=== PATIENT | female | born 2005 | race Caucasian/White ===

== ENCOUNTER 2025-01-20 20:29 | Observation (INO) ==
--- NOTE | 2025-01-20 20:59 | Emergency Department Note ---
Impression & Plan Leukocytosis, Acute neck pain, Headache, Upper respiratory symptom ED Provider Note NAME: JACK GUEVARA AGE: 19 SEX: F : 2005 ARRIVES VIA: Walk-In INFORMANT: Patient ED PROVIDER(S): Alonzo Davis DO CHIEF COMPLAINT: Not feeling well HPI: Patient is a 19-year-old female who presents ER for multiple complaints. She notes her symptoms started yesterday and have worsened throughout today. She admits to a cough, congestion and a sore throat. She notes that her ears both hurt. She also admits to a mild headache and neck pain and that is the main reason why she came in. She spoke to a family member who is a doctor and there were concern for possible meningitis. She does have some nausea and muscle aches throughout her whole body. She denies any dysuria, urgency or frequency. Fever of 103 today. Shots are up-to-date. No other medical problems. ADDITIONAL HISTORY OBTAINED: Per HPI Chronic Medical/Social Conditions Affecting Care: Per HPI PAST MEDICAL HISTORY:See Below PAST SURGICAL HISTORY:See Below FAMILY HISTORY:See Below SOCIAL HISTORY:See Below HOME MEDICATIONS:See Below ALLERGIES:See Below VITALS:See Below PHYSICAL EXAMINATION: GENERAL: Sitting up in bed, alert, well appearing, well nourished, no distress, non-toxic, intermittent cough EYE EXAM: normal conjunctiva. PERRL and EOM's grossly intact. EARS: TMs clear bilaterally OROPHARYNX: Mild erythema in the posterior pharynx, lips, buccal mucosa, and tongue normal and mucous membranes are moist NECK: supple, no nuchal rigidity, no adenopathy, non-tender LUNGS: Clear to auscultation. Normal chest wall mechanics HEART: no murmurs, S1 normal and S2 normal ABDOMEN: abdomen soft, non-tender, normo-active bowel sounds, no masses, no rebound or guarding. BACK: Back is symmetrical on inspection and there is no deformity, no midline tenderness, no CVA tenderness. SKIN: no rashes and no bruising UPPER EXTREMITIES: upper extremities are grossly normal. LOWER EXTREMITIES: No pitting edema. NEURO EXAM: Normal sensorium, cranial nerves II-XII grossly intact, normal speech, no gross weakness of arms, no gross weakness of legs. MEDICAL DECISION MAKING: Patient is a 19-year-old female who presents ER for above-stated complaint. She is afebrile while here. IV was established and blood work was obtained. Labs showed a leukocytosis of 23,000. No significant anemia. BMP along LFTs bilirubin and lipase is unremarkable. UA without white cells to suggest infection. Viral panel is negative. Strep was negative. With the headache and neck pain she had no nuchal rigidity. With the history and the white count I did recommend an lumbar puncture. I discussed the risk and benefits with this at bedside and she agreed verbally as well as did have her sign the consent forms. She was given IV Rocephin, vancomycin and Decadron. Attempted LP but was unsuccessful. Discussed case with the hospitalist for admission and observation overnight until IR is able to perform lumbar puncture in the morning. Please see their note for further disposition management treatment. Consults/Care Managements Discussions: Per [facility] Triage Nursing notes reviewed. Limited review of prior medical records performed Vital Signs: reviewed and remarkable for tachycardic, hypertension Differential diagnosis: Differential diagnosis: Etiologies such as viral syndrome, otitis, pharyngitis, pneumonia, influenza, meningitis, urinary tract infection, sepsis, bacteremia, as well as others were entertained. ER treatment provided: See below Diagnostics interpreted by me include EKG and cardiac monitoring as listed below: -Cardiac Monitoring: An order was placed for continuous cardiac monitoring. The monitor shows a rate of 101 with sinus rhythm. -ECG: none -Laboratory studies:Interpreted by me as stated above in MDM and shown below. Imaging studies: Xrays: As interpreted by me: Portable AP upright 1 view of the chest shows no focal Lutrate CTs show: CT head was negative per radiology Procedures:EM PROCEDURE NOTE - Lumbar Puncture PRIOR TO PROCEDURE: The patient was evaluated prior to the procedure. The patient was identified and the procedure verified as lumbar puncture. A Time Out was held and the following information confirmed. Verify Correct Patient: Yes Verify Correct Site: Yes Verify Correct Procedure: Yes Verify Correct Position: Yes Indication: meningitis Discussion was held with the patient concerning lumbar puncture. The risks and benefits were explained with possible risks to include local back pain, headache, bleeding, infection, neurological sequelea (herniation and/or paralysis), and tract formation/subarachnoid epidermal cyst. The patient freely gave verbal consent. PROCEDURE NOTE: Patient was placed in the sitting position with hips, knees and neck flexed. Landmarks identified. Patient prepped and draped in usual sterile fashion. Skin anesthetized with 1% lidocaine. Lumbar puncture performed using a 3.5inch 22 gauge needle with stylet. 3 attempts were made unsuccessfully without fluid. With the inability to obtain CSF Case was discussed with hospitalist for admission and further monitoring Critical Care: I have personally spent 33 minutes of critical care time in the direct management of this patient. This includes bedside care, interpretation of diagnostic studies, and testing, discussion with consultants, patient, and family members, and other required patient management activities. This 33 minutes is in excess of all separately billable procedures. Past Med/Surg History Problem List (Updated 01/21/25 @ 00:53 by Alonzo Davis DO) Upper respiratory symptom (Acute) Headache (Acute) Acute neck pain (Acute) Leukocytosis (Acute) Social History Smoking Status: Never smoker Preferred Language: Macedonian Feels Safe at Home: Yes Allergies Allergies Allergy/AdvReac Type Severity Reaction Status Date / Time No Known Allergies Allergy Verified 01/20/25 23:53 Home Meds Home Medications Medication Instructions Recorded Confirmed [id number] 6.25 0 ml PO DIRECTED PRN Cold 01/20/25 01/20/25 mg-15 mg-325 mg/15 mL oral liquid Symptoms (Vicks Nyquil Cold and Flu) fluoxetine 10 mg capsule (Prozac) 10 mg PO DAILY 01/20/25 01/20/25 fluoxetine 40 mg capsule (Prozac) 40 mg PO DAILY 01/20/25 01/20/25 ibuprofen 125 mg-acetaminophen 250 2 tab PO DIRECTED PRN PAIN/FEVER 01/20/25 01/20/25 mg tablet (Advil Dual Action) Results & Data (ED) Vital Signs Vital Signs - 24 hr 01/20/25 20:36 01/20/25 21:20 01/20/25 21:20 Temperature 37.4 C 37.1 C Temperature Source Temporal Artery Scan Oral Pulse Rate 122 H 103 H Pulse Rate [Right Finger] 98 H Pulse Rhythm Regular Pulse Strength Normal Respiratory Rate 18 20 20 Respiratory Effort / Characteristics Non-Labored Spontaneous Non-Labored Spontaneous Respiratory Depth Normal Normal Respiratory Pattern Regular Regular Blood Pressure 144/81 H Blood Pressure [Left Arm] 134/82 Blood Pressure Mean 102 Blood Pressure Mean [Left Arm] 99 Blood Pressure Position Sitting Pulse Oximetry 97 97 97 Oxygen Delivery Method Room Air Room Air Room Air Sepsis Recent Fever Within 48 Hours Yes Sepsis New/Unexplained Change in Mental Status N/A Sepsis Action Taken by Nursing No Action Required 01/20/25 21:25 01/20/25 22:00 01/20/25 23:00 Temperature Temperature Source Pulse Rate 108 H Pulse Rate [Right Finger] 92 H 89 Pulse Rhythm Pulse Strength Respiratory Rate 18 17 Respiratory Effort / Characteristics Non-Labored Spontaneous Non-Labored Spontaneous Respiratory Depth Normal Normal Respiratory Pattern Regular Regular Blood Pressure Blood Pressure [Left Arm] 137/69 130/80 Blood Pressure Mean Blood Pressure Mean [Left Arm] 91 96 Blood Pressure Position Pulse Oximetry 97 97 Oxygen Delivery Method Room Air Room Air Sepsis Recent Fever Within 48 Hours Sepsis New/Unexplained Change in Mental Status Sepsis Action Taken by Nursing 01/21/25 00:00 Temperature Temperature Source Pulse Rate Pulse Rate [Right Finger] 90 Pulse Rhythm Pulse Strength Respiratory Rate 16 Respiratory Effort / Characteristics Non-Labored Spontaneous Respiratory Depth Normal Respiratory Pattern Regular Blood Pressure Blood Pressure [Left Arm] 146/79 H Blood Pressure Mean Blood Pressure Mean [Left Arm] 101 Blood Pressure Position Pulse Oximetry 98 Oxygen Delivery Method Room Air Sepsis Recent Fever Within 48 Hours Sepsis New/Unexplained Change in Mental Status Sepsis Action Taken by Nursing Laboratory Data 01/20/25 21:12 01/20/25 21:12 Lab Results 01/20/25 01/20/25 01/20/25 Range/Units 20:42 20:42 20:42 WBC (4.8-10.8) K/ul RBC (4.20-5.40) M/uL Hgb (12.0-16.0) g/dl Hct (37.0-47.0) % MCV (80.0-100.0) fL MCH (25.0-34.0) pg MCHC (32.0-36.0) g/dL RDW Std Deviation (36.4-46.3) fL RDW Coeff of Ken[place] (11.5-14.5) % Plt Count (130-400) K/uL MPV (9.4-12.4) fL Immature Gran % (Auto) % Neut % (Auto) % Lymph % (Auto) % [place] % (Auto) % Eos % (Auto) % Baso % (Auto) % Neut # (Auto) (1.40-6.50) K/uL Lymph # (Auto) (1.20-3.40) K/uL [place] # (Auto) (0.11-0.59) K/uL Eos # (Auto) (0.00-0.50) K/uL Baso # (Auto) (0.00-0.20) K/uL Immature Gran # (Auto) (0.01-0.20) K/uL Sodium (136-145) mmol/L Potassium (3.5-5.1) mmol/L Chloride (98-107) mmol/L Carbon Dioxide (21-32) mmol/L Anion Gap (3-11) BUN (6-23) mg/dl Creatinine (0.6-1.2) mg/dl Est Cr Clr Drug Dosing ml/min eGFR BUN/Creatinine Ratio (10-20) Glucose (70-99(Fasting)) mg/dl Calcium (8.6-10.3) mg/dl Total Bilirubin (0.2-1.0) mg/dl AST (13-39) U/L ALT (7-52) U/L Alkaline Phosphatase (34-104) U/L Total Protein (6.0-8.3) gm/dl Albumin (3.4-5.0) gm/dl Globulin (2.5-4.0) gm/dl Albumin/Globulin Ratio (0.9-2) Lipase (11-82) U/L Urine Color Urine Appearance (Clear) Urine pH (4.5-7.5) Ur Specific [place] (1.000-1.030) Urine Protein (Negative) Urine Glucose (UA) (Negative) Urine Ketones (Negative) Urine Blood (Negative) Urine Nitrite (Negative) Urine Bilirubin (Negative) Urine Urobilinogen (Negative) Ur Leukocyte Esterase (Negative) Urine WBC (Auto) (0-5) /hpf Urine RBC (Auto) (0-2) /hpf U Hyaline Cast (Auto) (0-2) /lpf U Epithel Cells (Auto) (0-2) /hpf Urine Bacteria (Auto) (None Seen) Adenovirus (PCR) Not Detected (NotDetected) B. pertussis DNA (PCR) Not Detected (NotDetected) B.parapertussis DNA PCR Not Detected (NotDetected) C. pneumoniae DNA (PCR) Not Detected (NotDetected) Coronavirus OC43 (PCR) Not Detected (NotDetected) Coronavirus HKU1 (PCR) Not Detected (NotDetected) Coronavirus 229E (PCR) Not Detected (NotDetected) SARS-CoV-2 (PCR) NEGATIVE Not Detected (Negative) Coronavirus NL63 (PCR) Not Detected (NotDetected) Human Metapneumovir PCR Not Detected (NotDetected) Influenza Type A (PCR) Negative Not Detected (Neg) Influenza Type B (PCR) Negative (Neg) M. pneumoniae (PCR) (NotDetected) Parainfluenza 1 (PCR) (NotDetected) Parainfluenza 2 (PCR) (NotDetected) Parainfluenza 3 (PCR) (NotDetected) Parainfluenza 4 (PCR) (NotDetected) RSV (RT-PCR) (Neg) RSV (PCR) (NotDetected) Entero/Rhino (PCR) (NotDetected) Group A Strep (PCR) (NotDetected) 01/20/25 01/20/25 01/20/25 Range/Units 20:42 21:12 22:40 WBC 23.42 H (4.8-10.8) K/ul RBC 5.01 (4.20-5.40) M/uL Hgb 15.0 (12.0-16.0) g/dl Hct 42.0 (37.0-47.0) % MCV 83.8 (80.0-100.0) fL MCH 29.9 (25.0-34.0) pg MCHC 35.7 (32.0-36.0) g/dL RDW Std Deviation 35.9 L (36.4-46.3) fL RDW Coeff of Kenney 11.9 (11.5-14.5) % Plt Count 330 (130-400) K/uL MPV 9.4 (9.4-12.4) fL Immature Gran % (Auto) 0.6 % Neut % (Auto) 85.2 % Lymph % (Auto) 7.8 % [place] % (Auto) 6.2 % Eos % (Auto) 0.0 % Baso % (Auto) 0.2 % Neut # (Auto) 19.96 H (1.40-6.50) K/uL Lymph # (Auto) 1.82 (1.20-3.40) K/uL [place] # (Auto) 1.45 H (0.11-0.59) K/uL Eos # (Auto) 0.01 (0.00-0.50) K/uL Baso # (Auto) 0.05 (0.00-0.20) K/uL Immature Gran # (Auto) 0.13 (0.01-0.20) K/uL Sodium 137 (136-145) mmol/L Potassium 3.6 (3.5-5.1) mmol/L Chloride 101 (98-107) mmol/L Carbon Dioxide 28 (21-32) mmol/L Anion Gap 8 (3-11) BUN 8 (6-23) mg/dl Creatinine 0.71 (0.6-1.2) mg/dl Est Cr Clr Drug Dosing 144.8 ml/min eGFR 125.53 BUN/Creatinine Ratio 11.3 (10-20) Glucose 127 H (70-99(Fasting)) mg/dl Calcium 9.8 (8.6-10.3) mg/dl Total Bilirubin 0.6 (0.2-1.0) mg/dl AST 23 (13-39) U/L ALT 33 (7-52) U/L Alkaline Phosphatase 84 (34-104) U/L Total Protein 8.3 (6.0-8.3) gm/dl Albumin 4.9 (3.4-5.0) gm/dl Globulin 3.4 (2.5-4.0) gm/dl Albumin/Globulin Ratio 1.4 (0.9-2) Lipase 6 L (11-82) U/L Urine Color Yellow Urine Appearance Clear (Clear) Urine pH 7.5 (4.5-7.5) Ur Specific [place] 1.008 (1.000-1.030) Urine Protein Negative (Negative) Urine Glucose (UA) Negative (Negative) Urine Ketones Negative (Negative) Urine Blood Negative (Negative) Urine Nitrite Negative (Negative) Urine Bilirubin Negative (Negative) Urine Urobilinogen Negative (Negative) Ur Leukocyte Esterase 2+ H (Negative) Urine WBC (Auto) 0-5 (0-5) /hpf Urine RBC (Auto) 0-2 (0-2) /hpf U Hyaline Cast (Auto) 0-2 (0-2) /lpf U Epithel Cells (Auto) 3-5 H (0-2) /hpf Urine Bacteria (Auto) None Seen (None Seen) Adenovirus (PCR) (NotDetected) B. pertussis DNA (PCR) (NotDetected) B.parapertussis DNA PCR (NotDetected) C. pneumoniae DNA (PCR) (NotDetected) Coronavirus OC43 (PCR) (NotDetected) Coronavirus HKU1 (PCR) (NotDetected) Coronavirus 229E (PCR) (NotDetected) SARS-CoV-2 (PCR) (Negative) Coronavirus NL63 (PCR) (NotDetected) Human Metapneumovir PCR (NotDetected) Influenza Type A (PCR) (Neg) Influenza Type B (PCR) Not Detected (Neg) M. pneumoniae (PCR) Not Detected (NotDetected) Parainfluenza 1 (PCR) Not Detected (NotDetected) Parainfluenza 2 (PCR) Not Detected (NotDetected) Parainfluenza 3 (PCR) Not Detected (NotDetected) Parainfluenza 4 (PCR) Not Detected (NotDetected) RSV (RT-PCR) Negative (Neg) RSV (PCR) Not Detected (NotDetected) Entero/Rhino (PCR) Not Detected (NotDetected) Group A Strep (PCR) NOT DETECTED (NotDetected) Administered Medications Vancomycin HCl 1,750 mg/ (Sodium Chloride) 535 mls @ 200 mls/hr IV NOW ONE Stop: 01/21/25 02:21 Last Admin: 01/21/25 00:28 Dose: 200 mls/hr Documented By: RADHA Discontinued Medications Dexamethasone Sodium Phosphate (DexamethasonePf 10 Mg/Ml Vial) 10 mg IV NOW ONE Stop: 01/21/25 00:01 Last Admin: 01/21/25 00:28 Dose: 10 mg Documented By: RADHA Sodium Chloride (Nss) 1,000 mls @ 999 mls/hr IV .Q1H1M LUDY Stop: 01/20/25 23:00 Last Infusion: 01/20/25 23:31 Dose: Infused Documented By: Admin: 01/20/25 22:29 Dose: 999 mls/hr Documented By: Infusion: 01/20/25 22:25 Dose: Infused Documented By: Admin: 01/20/25 21:17 Dose: 999 mls/hr Documented By: RADHA Ceftriaxone Sodium (Rocephin) 2,000 mg in 50 mls @ 100 mls/hr IV NOW STA Stop: 01/20/25 23:34 Last Infusion: 01/21/25 00:24 Dose: Infused Documented By: Admin: 01/20/25 23:49 Dose: 100 mls/hr Documented By: RADHA Ketorolac Tromethamine (Ketorolac Tromethamine 15 Mg/Ml Vial) 10 mg IV NOW ONE Stop: 01/20/25 20:57 Last Admin: 01/20/25 21:17 Dose: 10 mg Documented By: RADHA Imaging Data Radiologist's Impression: Chest X-Ray 01/20/25 20:40 Exam(s): XR CXR 1 VIEW EXAM: XR Chest, 1 View CLINICAL HISTORY: Reason for exam: generalized illness. TECHNIQUE: Frontal view of the chest. COMPARISON: No relevant prior studies available. FINDINGS: Lungs: No consolidation. No overt edema. Pleural space: No pleural effusion. No pneumothorax. Heart: Unremarkable. No cardiomegaly. IMPRESSION: No acute cardiopulmonary abnormality. Electronically signed by: Balbir Bella MD 01/20/25 22:[address] 01/20/25 22:40 Exam(s): CT HEAD Without Contrast EXAM: CT Head Without Intravenous Contrast CLINICAL HISTORY: Reason for exam: NAVARRO. TECHNIQUE: Axial computed tomography images of the head/brain without intravenous contrast. CTDI is 38.74 mGy and DLP is 546.36 mGy-cm. Automated exposure control was utilized for the study. A dose lowering technique was utilized adhering to the principles of ALARA. COMPARISON: No relevant prior studies available. FINDINGS: Brain: Unremarkable. No acute intracranial hemorrhage, edema or abnormal mass-effect. Ventricles: Unremarkable. No ventriculomegaly. Bones/joints: Unremarkable. No acute fracture. Soft tissues: Unremarkable. Sinuses: Unremarkable as visualized. No acute sinusitis. Mastoid air cells: Unremarkable as visualized. No mastoid effusion. IMPRESSION: Normal head/brain CT. Electronically signed by: Cam Salvador MD 01/20/25 23:02 PM Discharge Plan Visit Data Chief Complaint: Flu Like Symptoms Stated Complaint: HEADACHE, FEVER,THROAT/BODY PAIN ED Provider: Alonzo Davis Discharge Problem: Leukocytosis, Acute neck pain, Headache, Upper respiratory symptom Forms Stand Alone Forms: [facility] Prescriptions Prescriptions: No Action fluoxetine [Prozac] 40 mg Capsule 40 mg PO DAILY Rx Instructions: TOTAL DOSE 50 MG--TAKES WITH 10 MG CAP. fluoxetine [Prozac] 10 mg Capsule 10 mg PO DAILY Rx Instructions: TOTAL DOSE 50 MG---TAKES WITH 40 MG CAP. Vicks Nyquil Cold and Flu 6.25-15-325 mg/15 mL Liquid 0 ml PO DIRECTED PRN (Reason: Cold Symptoms) Rx Instructions: DOSE PER PKG INSTRUCTIONS ibuprofen-acetaminophen [Advil Dual Action] 125-250 mg Tablet 2 tab PO DIRECTED PRN (Reason: PAIN/FEVER) Referrals Referrals: PCP,NO [Physician] - Discharge Problem: Leukocytosis Qualifiers: Leukocytosis type: unspecified Qualified Code(s): D72.829 - Elevated white blood cell count, unspecified Headache Qualifiers: Headache type: unspecified Headache chronicity pattern: unspecified pattern I ntractability: not intractable Qualified Code(s): R51.9 - Headache, unspecified
[2025-01-20] MEDS: KETOROLAC TROMETHAMINE 15 MG/ML VIAL IV ONE (21:17)
[2025-01-20] MEDS: SODIUM CHLORIDE 0.9% 1,000 ML IV SCH (21:17)
[2025-01-20 21:33] LABS: Influenza A virus by PCR Negative (Neg); Influenza B virus by PCR Negative (Neg); RSV by PCR Negative (Neg); SARS CoV2 RNA(COVID-19) Ceph NEGATIVE (Negative)
[2025-01-20 21:40] LABS: Albumin Globulin Ratio 1.4 (0.9-2); BUN Creatinine Ratio 11.3 (10-20); Bilirubin,Total 0.6 mg/dl (0.2-1.0); Calcium 9.8 mg/dl (8.6-10.3); Creatinine Clr Calc Pharmacy 144.8 ml/min; Globulin 3.4 gm/dl (2.5-4.0); Potassium 3.6 mmol/L (3.5-5.1); Total Protein 8.3 gm/dl (6.0-8.3)
[2025-01-20 21:43] LABS: Basophils # (auto) 0.05 K/uL (0.00-0.20); Basophils % (auto) 0.2 %; Eosinophils # (auto) 0.01 K/uL (0.00-0.50); Immature Granulocytes # (auto) 0.13 K/uL (0.01-0.20); Immature Granulocytes % (auto) 0.6 %; Lymphocytes # (auto) 1.82 K/uL (1.20-3.40); Lymphocytes % (auto) 7.8 %; Mean Corpuscular Hemoglobin 29.9 pg (25.0-34.0); Mean Corpuscular Hgb Conc 35.7 g/dL (32.0-36.0); Mean Corpuscular Volume 83.8 fL (80.0-100.0); Mean Platelet Volume 9.4 fL (9.4-12.4); Monocytes # (auto) 1.45 K/uL (0.11-0.59); Monocytes % (auto) 6.2 %; Neutrophils # (auto) 19.96 K/uL (1.40-6.50); Neutrophils % (auto) 85.2 %; Platelet Count 330 K/uL (130-400); RDW Coefficient of Variation 11.9 % (11.5-14.5); RDW Standard Deviation 35.9 fL (36.4-46.3); Red Blood Count 5.01 M/uL (4.20-5.40); White Blood Count 23.42 K/ul (4.8-10.8)
[2025-01-20 22:00] LABS: Adenovirus PCR Not Detected (NotDetected); Bordetella parapertussis PCR Not Detected (NotDetected); Bordetella pertussis PCR Not Detected (NotDetected); Chlamydia pneumoniae PCR Not Detected (NotDetected); Coronavirus 229E PCR Not Detected (NotDetected); Coronavirus CoV-2 (COVID19)PCR Not Detected (NotDetected); Coronavirus HKU1 PCR Not Detected (NotDetected); Coronavirus NL63 PCR Not Detected (NotDetected); Coronavirus OC43PCR Not Detected (NotDetected); Human Metapneumovirus PCR Not Detected (NotDetected); Influenza A PCR Not Detected (NotDetected); Influenza B PCR Not Detected (NotDetected); Mycoplasma pneumoniae PCR Not Detected (NotDetected); Parainfluenza Virus 1 PCR Not Detected (NotDetected); Parainfluenza Virus 2 PCR Not Detected (NotDetected); Parainfluenza Virus 3 PCR Not Detected (NotDetected); Parainfluenza Virus 4 PCR Not Detected (NotDetected); Respiratory Syncytial VirusPCR Not Detected (NotDetected); Rhinovirus/Enterovirus PCR Not Detected (NotDetected)
--- NOTE | 2025-01-20 22:03 | XRay Report ---
Exam(s): XR CXR 1 VIEW EXAM: XR Chest, 1 View CLINICAL HISTORY: Reason for exam: generalized illness. TECHNIQUE: Frontal view of the chest. COMPARISON: No relevant prior studies available. FINDINGS: Lungs: No consolidation. No overt edema. Pleural space: No pleural effusion. No pneumothorax. Heart: Unremarkable. No cardiomegaly. IMPRESSION: No acute cardiopulmonary abnormality. Electronically signed by: Balbir Bella MD 01/20/25 22:01 PM
--- NOTE | 2025-01-20 23:04 | CT Scan Report ---
Exam(s): CT HEAD Without Contrast EXAM: CT Head Without Intravenous Contrast CLINICAL HISTORY: Reason for exam: NAVARRO. TECHNIQUE: Axial computed tomography images of the head/brain without intravenous contrast. CTDI is 38.74 mGy and DLP is 546.36 mGy-cm. Automated exposure control was utilized for the study. A dose lowering technique was utilized adhering to the principles of ALARA. COMPARISON: No relevant prior studies available. FINDINGS: Brain: Unremarkable. No acute intracranial hemorrhage, edema or abnormal mass-effect. Ventricles: Unremarkable. No ventriculomegaly. Bones/joints: Unremarkable. No acute fracture. Soft tissues: Unremarkable. Sinuses: Unremarkable as visualized. No acute sinusitis. Mastoid air cells: Unremarkable as visualized. No mastoid effusion. IMPRESSION: Normal head/brain CT. Electronically signed by: Cam Salvador MD 01/20/25 23:02 PM
[2025-01-20 23:06] LABS: Appearance Urine Clear (Clear); Bacteria Urine Automated None Seen (None Seen); Bilirubin Urine Negative (Negative); Blood Urine Negative (Negative); Cast Urine Automated 0-2 /lpf (0-2); Color Urine Yellow; Glucose Urine UA Negative (Negative); Ketones Urine Negative (Negative); Leukocyte Esterase Urine 2+ (Negative); Nitrite Urine Negative (Negative); Protein Urine Negative (Negative); RBC Urine Automated 0-2 /hpf (0-2); Specific Gravity Urine 1.008 (1.000-1.030); Urobilinogen Urine Negative (Negative); WBC Urine Automated 0-5 /hpf (0-5); pH Urine 7.5 (4.5-7.5)
[2025-01-20] MEDS ORDERED: VANCOMYCIN CONSULT ACTIVE PRN (23:41)
[2025-01-20] MEDS: cefTRIAXone SODIUM 2,000 MG/50 ML BAG IV STA (23:49)
--- NOTE | 2025-01-21 00:17 | History & Physical Report ---
Date of Service January 21, 2025 Assessment & Plan (1) Fever: (2) Neck pain: Plan 19-year-old female with no significant past medical or surgical history presenting with 2 days of fever, headache, neck pain and stiffness as well as photophobia Concern for possible meningitis. Unfortunately, LP attempted in the ER was unsuccessful #Fever/headache/neck stiffness/photophobiaconcern for meningitis Admit to medical Maintain isolation precautions Obtain LP in a.m. with IR order placed for CSF glucose, protein, cell count with differential, Gram stain and culture as well as meningitis/encephalitis panel Continue ceftriaxone 2 g IV twice daily Continue vancomycin Continue LR at 125 mL/h Tylenol as needed for pain or fever Zofran as needed for nausea #Depression Continue fluoxetine 50 mg p.o. daily History of Present Illness Chief Complaint: headache, neck stiffness, fever Primary Care Provider: [facility] Navarrotamiko Og Is a 19-year-old female with no significant past medical or surgical history presenting with 1 day of severe headache, neck pain/stiffness as well as fever, chills, body aches. Patient reports she had a severe headache last night 01/21/2020 7 PM. She took some NyQuil and went to sleep. Today 01/20 she had continued headache as well as neck pain and stiffness, sore throat, nausea, muscle pain and light sensitivity. She had a fever to 103.1 today as well as chills. No recent illness, no recent travel, no sick contacts She denies shortness of breath, cough, urinary symptoms No rash or sores Patient did have mono in late October through November. In the ER patient is afebrile, hemodynamically stable LP attempted but unfortunately unsuccessful ER course: Normal saline x 2 L Toradol 10 mg IV Ceftriaxone 2 g IV Vancomycin 1750 IV Dexamethasone 10 mg IV Tylenol Allergies Allergy/AdvReac Type Severity Reaction Status Date / Time No Known Allergies Allergy Verified 01/20/25 23:53 Home Medications Medication Instructions Recorded Confirmed Type olnwavedrz-DI-hhbkhtagguigi 6.25 0 ml PO DIRECTED PRN Cold 01/20/25 01/20/25 History mg-15 mg-325 mg/15 mL oral liquid Symptoms (Vicks Nyquil Cold and Flu) fluoxetine 10 mg capsule (Prozac) 10 mg PO DAILY 01/20/25 01/20/25 History fluoxetine 40 mg capsule (Prozac) 40 mg PO DAILY 01/20/25 01/20/25 History ibuprofen 125 mg-acetaminophen 250 2 tab PO DIRECTED PRN PAIN/FEVER 01/20/25 01/20/25 History mg tablet (Advil Dual Action) Past Med/Surg History Problem List (Updated 01/21/25 @ 02:59 by Amina Olivera DO) Neck pain Fever Upper respiratory symptom (Acute) Headache (Acute) Acute neck pain (Acute) Leukocytosis (Acute) Social History Smoking Status: Never smoker Second Hand Exposure: No; Do You Dip or Chew Tobacco: No; Tobacco Cessation Education Requested by Patient: No Hx Alcohol Use: Yes Hx Substance Use: Yes Substance Use Type Other:: once Preferred Language: Salvadorean Communication Ability: Effective Director Of Operations Support Required: No Beliefs That Will Affect Care: None Current Living Situation: Other Current Living Situation Comment: dorm college Other Information That Helps Us Care for You: No Feels Safe at Home: Yes Safety Concerns: Feels Safe At This Time Assistive Devices: None Review of Systems Review of Systems: All systems reviewed & are unremarkable except as noted in HPI & below Physical Exam Physical Exam: General: patient resting comfortably, NAD, non-toxic in appearance, AA&O x 4 Skin: warm, dry, intact, no rashes or lesions HEENT: NC/AT, PERRL, +Photophobia, EOMI, anicteric sclera, conjunctiva without injection, external ear normal to inspection and nontender, nares patent, moist mucus membranes, dentition intact, no oropharyngeal lesions, neck sore and stiff, +Kernig's, trachea midline, no LAD, no thyromegaly, no JVD Heart: +S1/S2, regular, no m/r/g Lungs: equal air entry bilaterally, no rales/rhonchi/wheezes Abd: +BS, soft, NT/ND, no masses/organomegaly/ascites Ext: warm, 2+ pulses in UE/LE bilaterally, no clubbing/cyanosis or edema Neuro: nonfocal, patient AA&O x 4, speech intact, no facial droop, moving all extremities on command with equal strength 5/5 Results & Data Results & Data Vital Signs (Past 12 Hours) Vital Signs Temp Pulse Pulse Resp BP BP Pulse Ox 01/21/25 00:00 90 16 146/79 H 98 01/20/25 23:00 89 17 130/80 97 01/20/25 22:00 92 H 18 137/69 97 01/20/25 21:25 108 H 01/20/25 21:20 103 H 20 97 01/20/25 21:20 37.1 C 98 H 20 134/82 97 01/20/25 20:36 37.4 C 122 H 18 144/81 H 97 O2 Del Method 01/21/25 00:00 Room Air 01/20/25 23:00 Room Air 01/20/25 22:00 Room Air 01/20/25 21:25 01/20/25 21:20 Room Air 01/20/25 21:20 Room Air 01/20/25 20:36 Room Air Laboratory Results Laboratory Results WBC 23.42 K/ul (4.8-10.8) H 01/20/25 21:12 RBC 5.01 M/uL (4.20-5.40) 01/20/25 21:12 Hgb 15.0 g/dl (12.0-16.0) 01/20/25 21:12 Hct 42.0 % (37.0-47.0) 01/20/25 21:12 MCV 83.8 fL (80.0-100.0) 01/20/25 21:12 MCH 29.9 pg (25.0-34.0) 01/20/25 21:12 MCHC 35.7 g/dL (32.0-36.0) 01/20/25 21:12 RDW Std Deviation 35.9 fL (36.4-46.3) L 01/20/25 21:12 RDW Coeff of [place] 11.9 % (11.5-14.5) 01/20/25 21:12 Plt Count 330 K/uL (130-400) 01/20/25 21:12 MPV 9.4 fL (9.4-12.4) 01/20/25 21:12 Immature Gran % (Auto) 0.6 % 01/20/25 21:12 Neut % (Auto) 85.2 % 01/20/25 21:12 Lymph % (Auto) 7.8 % 01/20/25 21:12 Hunt % (Auto) 6.2 % 01/20/25 21:12 Eos % (Auto) 0.0 % 01/20/25 21:12 Baso % (Auto) 0.2 % 01/20/25 21:12 Neut # (Auto) 19.96 K/uL (1.40-6.50) H 01/20/25 21:12 Lymph # (Auto) 1.82 K/uL (1.20-3.40) 01/20/25 21:12 Hunt # (Auto) 1.45 K/uL (0.11-0.59) H 01/20/25 21:12 Eos # (Auto) 0.01 K/uL (0.00-0.50) 01/20/25 21:12 Baso # (Auto) 0.05 K/uL (0.00-0.20) 01/20/25 21:12 Immature Gran # (Auto) 0.13 K/uL (0.01-0.20) 01/20/25 21:12 Sodium 137 mmol/L (136-145) 01/20/25 21:12 Potassium 3.6 mmol/L (3.5-5.1) 01/20/25 21:12 Chloride 101 mmol/L (98-107) 01/20/25 21:12 Carbon Dioxide 28 mmol/L (21-32) 01/20/25 21:12 Anion Gap 8 (3-11) 01/20/25 21:12 BUN 8 mg/dl (6-23) 01/20/25 21:12 Creatinine 0.71 mg/dl (0.6-1.2) 01/20/25 21:12 Est Cr Clr Drug Dosing 144.8 ml/min 01/20/25 21:12 eGFR 125.53 01/20/25 21:12 BUN/Creatinine Ratio 11.3 (10-20) 01/20/25 21:12 Glucose 127 mg/dl (70-99(Fasting)) H 01/20/25 21:12 Calcium 9.8 mg/dl (8.6-10.3) 01/20/25 21:12 Total Bilirubin 0.6 mg/dl (0.2-1.0) 01/20/25 21:12 AST 23 U/L (13-39) 01/20/25 21:12 ALT 33 U/L (7-52) 01/20/25 21:12 Alkaline Phosphatase 84 U/L (34-104) 01/20/25 21:12 Total Protein 8.3 gm/dl (6.0-8.3) 01/20/25 21:12 Albumin 4.9 gm/dl (3.4-5.0) 01/20/25 21:12 Globulin 3.4 gm/dl (2.5-4.0) 01/20/25 21:12 Albumin/Globulin Ratio 1.4 (0.9-2) 01/20/25 21:12 Lipase 6 U/L (11-82) L 01/20/25 21:12 Urine Color Yellow 01/20/25 22:40 Urine Appearance Clear (Clear) 01/20/25 22:40 Urine pH 7.5 (4.5-7.5) 01/20/25 22:40 Ur Specific [place] 1.008 (1.000-1.030) 01/20/25 22:40 Urine Protein Negative (Negative) 01/20/25 22:40 Urine Glucose (UA) Negative (Negative) 01/20/25 22:40 Urine Ketones Negative (Negative) 01/20/25 22:40 Urine Blood Negative (Negative) 01/20/25 22:40 Urine Nitrite Negative (Negative) 01/20/25 22:40 Urine Bilirubin Negative (Negative) 01/20/25 22:40 Urine Urobilinogen Negative (Negative) 01/20/25 22:40 Ur Leukocyte Esterase 2+ (Negative) H 01/20/25 22:40 Urine WBC (Auto) 0-5 /hpf (0-5) 01/20/25 22:40 Urine RBC (Auto) 0-2 /hpf (0-2) 01/20/25 22:40 U Hyaline Cast (Auto) 0-2 /lpf (0-2) 01/20/25 22:40 U Epithel Cells (Auto) 3-5 /hpf (0-2) H 01/20/25 22:40 Urine Bacteria (Auto) None Seen (None Seen) 01/20/25 22:40 Adenovirus (PCR) Not Detected (NotDetected) 01/20/25 20:42 B. pertussis DNA (PCR) Not Detected (NotDetected) 01/20/25 20:42 B.parapertussis DNA PCR Not Detected (NotDetected) 01/20/25 20:42 C. pneumoniae DNA (PCR) Not Detected (NotDetected) 01/20/25 20:42 Coronavirus OC43 (PCR) Not Detected (NotDetected) 01/20/25 20:42 Coronavirus HKU1 (PCR) Not Detected (NotDetected) 01/20/25 20:42 Coronavirus 229E (PCR) Not Detected (NotDetected) 01/20/25 20:42 SARS-CoV-2 (PCR) NEGATIVE (Negative) 01/20/25 20:42 SARS-CoV-2 (PCR) Not Detected (NotDetected) 01/20/25 20:42 Coronavirus NL63 (PCR) Not Detected (NotDetected) 01/20/25 20:42 Human Metapneumovir PCR Not Detected (NotDetected) 01/20/25 20:42 Influenza Type A (PCR) Negative (Neg) 01/20/25 20:42 Influenza Type A (PCR) Not Detected (NotDetected) 01/20/25 20:42 Influenza Type B (PCR) Negative (Neg) 01/20/25 20:42 Influenza Type B (PCR) Not Detected (NotDetected) 01/20/25 20:42 M. pneumoniae (PCR) Not Detected (NotDetected) 01/20/25 20:42 Parainfluenza 1 (PCR) Not Detected (NotDetected) 01/20/25 20:42 Parainfluenza 2 (PCR) Not Detected (NotDetected) 01/20/25 20:42 Parainfluenza 3 (PCR) Not Detected (NotDetected) 01/20/25 20:42 Parainfluenza 4 (PCR) Not Detected (NotDetected) 01/20/25 20:42 RSV (RT-PCR) Negative (Neg) 01/20/25 20:42 RSV (PCR) Not Detected (NotDetected) 01/20/25 20:42 Entero/Rhino (PCR) Not Detected (NotDetected) 01/20/25 20:42 Group A Strep (PCR) NOT DETECTED (NotDetected) 01/20/25 20:42 Impressions Chest X-Ray 01/20/25 20:40 Exam(s): XR CXR 1 VIEW EXAM: XR Chest, 1 View CLINICAL HISTORY: Reason for exam: generalized illness. TECHNIQUE: Frontal view of the chest. COMPARISON: No relevant prior studies available. FINDINGS: Lungs: No consolidation. No overt edema. Pleural space: No pleural effusion. No pneumothorax. Heart: Unremarkable. No cardiomegaly. IMPRESSION: No acute cardiopulmonary abnormality. Electronically signed by: Balbir Bella MD 01/20/25 22:[address] 01/20/25 22:40 Exam(s): CT HEAD Without Contrast EXAM: CT Head Without Intravenous Contrast CLINICAL HISTORY: Reason for exam: NAVARRO. TECHNIQUE: Axial computed tomography images of the head/brain without intravenous contrast. CTDI is 38.74 mGy and DLP is 546.36 mGy-cm. Automated exposure control was utilized for the study. A dose lowering technique was utilized adhering to the principles of ALARA. COMPARISON: No relevant prior studies available. FINDINGS: Brain: Unremarkable. No acute intracranial hemorrhage, edema or abnormal mass-effect. Ventricles: Unremarkable. No ventriculomegaly. Bones/joints: Unremarkable. No acute fracture. Soft tissues: Unremarkable. Sinuses: Unremarkable as visualized. No acute sinusitis. Mastoid air cells: Unremarkable as visualized. No mastoid effusion. IMPRESSION: Normal head/brain CT. Electronically signed by: Cam Salvador MD 01/20/25 23:02 PM PG Care Time/CCT Total # of Minutes Spent Total Time Spent with Patient: Total time spent is greater than 50% in coordination of care (as documented) at patient's floor/unit and/or counseling patient: Coding Level of Care Code 39897 INT INP/OBS CARE 3/75MIN Diagnoses Fever R50.9 Neck pain M54.2
[2025-01-21] MEDS: dexAMETHasone**PF** 10 MG/ML VIAL IV ONE (00:28)
[2025-01-21] MEDS: VANCOMYCIN HCL 1,750 MG in SODIUM CHLORIDE 0.9% 500 ML IV ONE (00:28)
[2025-01-21] MEDS ORDERED: VANCOMYCIN CONSULT ACTIVE PRN (01:51)
[2025-01-21] MEDS ORDERED: ONDANSETRON INJ 2 MG/ML 2 ML VIAL IV PRN (01:51)
[2025-01-21] MEDS: LACTATED RINGER'S 1,000 ML IV STA (02:15)
[2025-01-21] MEDS: ACETAMINOPHEN 325 MG TAB PO PRN (02:15)
[2025-01-21] MEDS: VANCOMYCIN HCL 1,250 MG in SODIUM CHLORIDE 0.9% 250 ML IV SCH (08:45)
[2025-01-21 08:55] LABS: Creatinine Clr Calc Pharmacy 220.5 ml/min
[2025-01-21] MEDS ORDERED: VANCOMYCIN HCL 1,000 MG/270 ML BAG IV SCH (09:00)
--- NOTE | 2025-01-21 10:30 | Pharmacy Report ---
Pharmacy PK ABX Note - Date of Service January 21, 2025 - Assessment and Plan Assessment 19 year old F who presented with multiple complaints including fever, headache, neck stiffness, cough, congestion, sore throat, and photophobia. Patient is currently receiving vancomycin and ceftriaxone for empiric treatment of meningitis. LP attempted in ED, but was unsuccessful. Will be attempted again today via IR. No cultures yet at this time. Day # 1 of antimicrobial therapy. Plan Vancomycin * Loading dose: 1750 mg IV x 1 * Maintenance dose: 1250 mg IV every 8 hours * Regimen is predicted to achieve target AUC/MICHELINE of 400-600 mg/L.hr * Random level ordered for: 01/22/25 Ceftriaxone * 2 g IV q12h - appropriately dosed for meningitis concern Pharmacy will continue to follow and will adjust dose/frequency as necessary. Thank you. Pharmacy has transitioned to AUC monitoring for vancomycin. AUC/MICHELINE is the preferred PK/PD target and is associated with decreased risk of nephrotoxicity compared to traditional trough targets.
--- NOTE | 2025-01-21 11:03 | Hospitalist Progress Note ---
Date of Service January 21, 2025 Assessment & Plan (1) Fever: (2) Neck pain: Plan 19-year-old female with no significant past medical or surgical history presenting with 2 days of fever, headache, neck pain and stiffness as well as photophobia Concern for possible meningitis. Unfortunately, LP attempted in the ER was unsuccessful Fever/headache/neck stiffness/photophobia with leukocytosis Concern for meningitis given neck stiffness/photophobia/stiff neck, fever and leukocytosis. No vomiting. Neck stiffness, headache, photophobia, and leukocytosis with concern for bacterial meningitis however patient is mentating normally rapidly improving and does not appear toxic. Kept on contact precautions until LP results were available LP with NO WBC/RBC/elevated protein. Mildly elevated BSG. No evidence of meiningitis Tylenol as needed for pain or fever Zofran as needed for nausea Respiratory bio fire is negative UA is negative. No UTI sx - Suspect viral given progression from myalgias/headache to URI sx and sore throat today. W/ high white count and recent viral illness just after spring will cover for secondary bacterial infection with rocephin. D/c vanco. Target 5 day course completion with cefdinir if doing well. GAS PCR negative. Recent [place] - Lymphocyte coutn not elevated. WBC neutrophilic without true left shift. ?bacterial 2ndary infection vs reactive/demargination. Trended. Depression Continue fluoxetine 50 mg p.o. daily DVT prophylaxis:Ambulate. Lovenox deferred pending/post LP Disposition: MSO Diet: regular Updated patients mother @ [phone] w/ patient permission Admission and Anticipated Discharge Date Admission Date: January 21, 2025 Subjective Mildly seen at the bedside this morning. She reports that she feels much better today than she did yesterday. She reports that yesterday when she came in she was having a lot of neck stiffness, difficulty bending her chin to her chest, had headache and sensitivity to light, fevers and felt generally poor. She reports today she has more of a sore throat but her other symptoms seem to be improving. She has much less neck stiffness and is able to bring her chin to her chest with some minimal mild residual discomfort. She reports the lights are down in the room she is not sure if she has much photosensitivity, but on turning on the light and looking at this she says this also seems greatly improved. She answers questions appropriately. She has some discomfort at her low back at her prior LP attempt site. She reports she does still have a h eadache but this is almost gone and only around 1/10 today. Physical Exam Physical Exam: General: A&Ox3. NAD. Cooperative. HEENT: Atraumatic, normocephalic. Vision and hearing grossly intact. Able to bring chin to chest without significant discomfort today. Vision and hearing grossly intact. Pupils equal and reactive. Pulm: Clear. symmetrical chest rise. No increase in work of breathing. No respiratory distress. Cardiac: RRR, -mrg. Radial pulses intact and symmetrical. Abdominal: Nontender, nondistended, soft. BS present. Skin: Prior LP attempt site at the lumbar spine is with bandage overlying this, underlying no hematoma/swelling. Minimally tender to palpation with slight ecchymoses. Extremities: Moves all extremities equally. Strength and sensation grossly intact in all extremities without focal deficits. Results & Data Results & Data Vital Signs (Past 12 Hours) Vital Signs Temp Pulse Pulse Resp BP BP Pulse Ox 01/21/25 07:49 36.6 C 77 16 104/60 97 01/21/25 01:53 37.1 C 90 16 126/78 97 01/21/25 01:51 01/21/25 01:12 37.2 C 92 H 18 128/97 98 01/21/25 01:00 37.2 C 92 H 18 128/97 98 01/21/25 00:00 90 16 146/79 H 98 01/20/25 23:00 89 17 130/80 97 O2 Del Method 01/21/25 07:49 Room Air 01/21/25 01:53 Room Air 01/21/25 01:51 Room Air 01/21/25 01:12 Room Air 01/21/25 01:00 Room Air 01/21/25 00:00 Room Air 01/20/25 23:00 Room Air PG Care Time/CCT Total # of Minutes Spent Total Time Spent with Patient: Total time spent is greater than 50% in coordination of care (as documented) at patient's floor/unit and/or counseling patient: Coding Level of Care Code 04394 SUB INP/OBS CARE 3/50MIN Diagnoses Fever R50.9 Neck pain M54.2
[2025-01-21] MEDS: fentaNYL citrate PF 100 MCG/2 ML VIAL ONE (12:30)
[2025-01-21 12:33] LABS: Appearance CSF Clear; CSF Count Tube # 3; CSF Xanthrochromic No xanthochromia; Color CSF Colorless; Red Blood Cell CSF Manual 0 (0); White Blood Cell CSF Manual 0 (0-5)
[2025-01-21 12:35] LABS: Total Protein CSF 31.2 mg/dl (15-45)
[2025-01-21] MEDS: LACTATED RINGER'S 500 ML IV SCH (13:05)
[2025-01-21 13:43] LABS: Cryptococcus neoformans/ga PCR Not Detected (NotDetected); Cytomegalovirus PCR Not Detected (NotDetected); Enterovirus PCR Not Detected (NotDetected); Escherichia coli K1 PCR Not Detected (NotDetected); Haemophilius influenzae PCR Not Detected (NotDetected); Herpes Simplex Virus 1 PCR Not Detected (NotDetected); Herpes Simplex Virus 2 PCR Not Detected (NotDetected); Human Herpes Virus 6 PCR Not Detected (NotDetected); Human Parechovirus PCR Not Detected (NotDetected); Listeria monocytogenes PCR Not Detected (NotDetected); Neisseria meningitidis PCR Not Detected (NotDetected); Streptococcus agalactiae PCR Not Detected (NotDetected); Streptococcus pneumoniae PCR Not Detected (NotDetected); Varicella Zoster Virus PCR Not Detected (NotDetected)
[2025-01-21] MEDS: FLUoxetine HCL 10 MG CAP PO SCH (14:09)
[2025-01-21] MEDS: FLUoxetine HCL 20 MG CAP PO SCH (14:09)
[2025-01-21] MEDS: cefTRIAXone SODIUM 2,000 MG/50 ML BAG IV SCH (14:10)
--- NOTE | 2025-01-21 14:52 | Fluoroscopy Report ---
LUMBAR PUNCTURE UNDER FLUOROSCOPY CLINICAL HISTORY: Headache/neck stiffness PROCEDURE: Procedure and risks were explained. Informed consent was obtained. A final timeout was com pleted. The patient was placed prone on the fluoroscopic exam table. The lower lumbar region was prep ped and draped in sterile fashion. 1% lidocaine was utilized for skin anesthesia. Utilizing fluoroscopic guidance, a 22-gauge Sprotte spinal needle was advanced into the intrathecal s pace at the L3-4 disc space level. Fluoroscopic spot images were obtained. Approximately 8 mL of angel r CSF fluid was removed and sent to lab for analysis. The needle was removed and Band-Aid applied. Th e patient tolerated the procedure well. Vital signs will be monitored postprocedure. Fluoroscopy time 5 seconds. Study dosed 4.20 mGy. IMPRESSION: Lumbar puncture as above. Performed, dictated, and signed by Lazaro Sweell PA-C; to be co-signed by Dr. Robinson Vargas. Electronically signed by: Robinson Vargas M.D. 01/21/2025 3:11 PM
[2025-01-22 06:35] LABS: Hematocrit (blood only) 40.3 % (37.0-47.0); Mean Corpuscular Hemoglobin 29.7 pg (25.0-34.0); Mean Corpuscular Hgb Conc 34.7 g/dL (32.0-36.0); Mean Corpuscular Volume 85.4 fL (80.0-100.0); Mean Platelet Volume 9.3 fL (9.4-12.4); Platelet Count 293 K/uL (130-400); RDW Coefficient of Variation 12.3 % (11.5-14.5); RDW Standard Deviation 38.1 fL (36.4-46.3); Red Blood Count 4.72 M/uL (4.20-5.40); White Blood Count 13.08 K/ul (4.8-10.8)
[2025-01-22] MEDS ORDERED: VANCOMYCIN LEVEL ONE (07:30)
[2025-01-22 07:46] VITALS: RESP 18
--- NOTE | 2025-01-22 11:19 | Discharge Summary ---
Date of Service January 22, 2025 Admission HPI Per Admitting Provider Ramon Og Is a 19-year-old female with no significant past medical or surgical history presenting with 1 day of severe headache, neck pain/stiffness as well as fever, chills, body aches. Patient reports she had a severe headache last night 01/21/2020 7 PM. She took some NyQuil and went to sleep. Today 01/20 she had continued headache as well as neck pain and stiffness, sore throat, nausea, muscle pain and light sensitivity. She had a fever to 103.1 today as well as chills. No recent illness, no recent travel, no sick contacts She denies shortness of breath, cough, urinary symptoms No rash or sores Patient did have mono in late October through November. In the ER patient is afebrile, hemodynamically stable LP attempted but unfortunately unsuccessful ER course: Normal saline x 2 L Toradol 10 mg IV Ceftriaxone 2 g IV Vancomycin 1750 IV Dexamethasone 10 mg IV Tylenol Admission Exam Per Admitting Provider General: patient resting comfortably, NAD, non-toxic in appearance, AA&O x 4 Skin: warm, dry, intact, no rashes or lesions HEENT: NC/AT, PERRL, +Photophobia, EOMI, anicteric sclera, conjunctiva without injection, external ear normal to inspection and nontender, nares patent, moist mucus membranes, dentition intact, no oropharyngeal lesions, neck sore and stiff, +Kernig's, trachea midline, no LAD, no thyromegaly, no JVD Heart: +S1/S2, regular, no m/r/g Lungs: equal air entry bilaterally, no rales/rhonchi/wheezes Abd: +BS, soft, NT/ND, no masses/organomegaly/ascites Ext: warm, 2+ pulses in UE/LE bilaterally, no clubbing/cyanosis or edema Neuro: nonfocal, patient AA&O x 4, speech intact, no facial droop, moving all extremities on command with equal strength 5/5 Principal Diagnosis Viral URI Discharge Exam General: patient resting comfortably, NAD, non-toxic in appearance, AA&O x 4 Skin: warm, dry, intact, no rashes or lesions HEENT: NC/AT, PERRL, EOMI, anicteric sclera, conjunctiva without injection, external ear normal to inspection and nontender, nares patent, moist mucus membranes, dentition intact, no oropharyngeal lesions, no neck sore stiffness, trachea midline, no LAD, no thyromegaly, no JVD Heart: +S1/S2, regular, no m/r/g Lungs: equal air entry bilaterally, no rales/rhonchi/wheezes Abd: +BS, soft, NT/ND, no masses/organomegaly/ascites Ext: warm, 2+ pulses in UE/LE bilaterally, no clubbing/cyanosis or edema Neuro: nonfocal, patient AA&O x 4, speech intact, no facial droop, moving all extremities on command with equal strength / Discharge Data Allergies Allergy/AdvReac Type Severity Reaction Status Date / Time No Known Allergies Allergy Verified 01/20/25 23:53 Consultations 01/21/25 00:00 ED Decision to Admit Stat Ordered Studies 01/20/25 22:40 CT head/brain wo con Stat 01/21/25 11:30 IR lumbar puncture diagnostic Routine Hospital Course (1) Upper respiratory symptom: (2) Headache: (3) Neck pain: Plan 19-year-old female with no significant past medical or surgical history presenting with 2 days of fever, headache, neck pain and stiffness as well as photophobia. Admitted for possible concern of meningitis, Lumbar puncture done pretty unremarkable. CSF fluid culture still pending, though. She got improved very rapidly with residual URI sx at discharge. Hence being discharged with 1 day observation at hospital. Blood WBC: mildly elevated. CMP, CSF analysis unremarkable. Plan : F/U 1 week / PRN with PCP. Review CSF Culture result with PCP. Discharged with Cefdinir for 5 days. No school until next Monday. Discussed gradual increase in activity. Total Time Total Time Spent Total Time Spent (In Minutes): Naveed Bustamante DO, attending physician, spent 30 minutes myself seeing the patient, reviewing the chart, and documenting today. Discharge Plan Discharge Items Patient Disposition: Home - Self-Care Reason For Visit: ?MENINGITIS Discharge Diagnosis: Viral illness. Meningitis ruled out. Activity: Resume your previous activity Non-emergency contact: Primary Care Provider Call non-emergency contact if: your temperature is above 101.5 Follow-up/Referrals: [facility] [Primary Care Provider] - (PLEASE FOLLOW UP WITH [facility] IN 7-10 DAYS ) Majo Lutz MD [Resident] - Diet: Regular Addtl Attending Provider Instructions: You were admitted to the hospital for suspicion of meningitis. Lumbar puncture i.e procedure to take out your cerebrospinal fluid was done and analysis did not show you had meningitis. You rapidly improved during hospital stay. Hence we are discharging you with oral medications. In some circumstance lumbar puncture report may be false negative given you got antibiotics before that, in that case your symptoms of neck stiffness/ headache/ fever might worsen. You need earlier f.u if this happens. Otherwise if your symptoms get better, you don't need to worry. A discharge summary will be sent to your primary care physician to ensure continuity of care. Please bring this discharge summary with you to your next office appointment so that your provider can review it at that time. Medications: Your medication list has been reviewed and reconciled upon discharge to ensure accuracy and continuity of care. An updated list of all your medications is included with your hospital discharge paperwork. Please review this list closely and make note of any changes to your medications. 1. Cefdinir is a antibiotics, it has been sent to your pharmacy. Kindly follow the order. 2. Take Tylenol/ Ibuprofen for fever/ headache if you will have any. Severe headache/ uncontrolled fever despite this warrants early follow up. Follow up appointments: - Make a follow up appointment with your PCP within the next week. It is very important that you follow up with them shortly after discharge from the hospital. - Keep all of your follow up appointments as already scheduled. If you cannot make an appointment, notify your provider. CONTACT YOUR PRIMARY CARE PROVIDER if you experience any of the following: - Difficulty following your treatment plan - Difficulty taking any of your medications CALL 911 OR GO TO THE EMERGENCY DEPARTMENT if you experience any of the following: - Uncontrolled fever/ Severe headache/ persistent neck stiffness. - Sudden, severe abdominal pain or nausea/vomiting - Severe chest pain or chest pain that radiates to your jaw or arm - Sudden, severe shortness of breath or difficulty breathing Pending Studies at Discharge: No Stand-Alone Forms: [employer], Work/School Release, Smoking Cessation Medications and DC Order Prescriptions: New cefdinir 300 mg capsule 300 mg PO BID 5 Days Qty: 10 0RF Continued fluoxetine [Prozac] 40 mg Capsule 40 mg PO DAILY Rx Instructions: TOTAL DOSE 50 MG--TAKES WITH 10 MG CAP. fluoxetine [Prozac] 10 mg Capsule 10 mg PO DAILY Rx Instructions: TOTAL DOSE 50 MG---TAKES WITH 40 MG CAP. Vicks Nyquil Cold and Flu 6.25-15-325 mg/15 mL Liquid 0 ml PO DIRECTED PRN (Reason: Cold Symptoms) Rx Instructions: DOSE PER PKG INSTRUCTIONS ibuprofen-acetaminophen [Advil Dual Action] 125-250 mg Tablet 2 tab PO DIRECTED PRN (Reason: PAIN/FEVER) Discharge Orders: Discharge Order (Routine); Ordered 01/22/25 Ordered By: Majo Hussein/Other Patient Handouts: Tick Bites, Understanding Headache Pain, ED Spinal Tap Headache No Patch Admission Data Admit Date/Time: 01/21/25 00:17 Attending Provider: Naveed Lee Admit Provider: Amina Olivera Primary Care Provider: [facility] Other Providers: Amina Olivera Other Interventions: Discharge Summary Assessment (RN) Last Done: 01/22/25 11:15 Supervising Physician Co-Signing Physician Notes ATTESTATION I also saw the patient and confirmed zepeda portions of the history and exam. I agree with the impression and plan in the resident documentation, and as summa rized below. She feels well this AM. No headache at present; mild NAVARRO earlier today. Tolerating diet without issue. Denies ear ache. No sore throat. EXAM Afebrile. VS as noted. Smiles. Conversational. SHWETA. Neck supple. Chin to chest without hesitation. CV RRR Lungs CTA with non labored respirations. ABD soft and non tender. DATA Labs WBC down to 13.08 Micro CSF PCR negative Culture, no growth IMPRESSION & PLAN Fever Neck Pain Looks good and feel better today. Tired, but to be expected. Clinical course, lab work and other studies reassuring. Agree with continuing antibiotics, although low suspicion for bacterial infection. Discussed signs/symptoms for which to monitor. No school until next Monday. Discussed gradual increase in activity. Follow up at [facility] or [facility] - I think she prefers [facility] given its proximity to her dorm Additional per resident documentation
[2025-01-22 11:21] VITALS: BP 112/70; PULSE 68; TEMP 97.5; O2SAT 97
== END 2025-01-22 13:08 | disposition home or self-care (01) | DRG 866 ==
LOC: SUATTDRO → ED 20:29 → INTOOBSV 01-21 00:17 → 3E 01-21 00:17 → SUATTDRO 01-21 00:17 → 3E 01-21 01:12